=== PATIENT | male | born 1940 | race Caucasian/White ===

== ENCOUNTER 2016-09-19 01:17 | Emergency (ER) | payer OTHER, MEDICARE ==
[2016-09-19 01:28] VITALS: RESP 16
[2016-09-19] MEDS ORDERED: ONDANSETRON 4 MG/2 ML VIAL IVP ONE (01:36)
[2016-09-19] MEDS ORDERED: NS 1,000 ML IV ONE (01:36)
--- NOTE | 2016-09-19 01:43 | EDPHY ---
H & P Stated Complaint: c/o R sided flank pain intermittent since yesterday, tonight pain/n/v Time Seen by Provider: 09/19/16 01:30 HPI/ROS: Chief Complaint: Right flank pain HPI: 75-year-old male with a past medical history of kidney stones been having intermittent right flank pain for the last 2 days. Patient woke this morning with constant pain in his right flank. He did have some nausea and vomited once. It is nonradiating. Denies any fevers or chills. No urinary urgency or frequency. He cannot find a position of comfort. There are no aggravating or alleviating factors. He has been driving cross[place]country and has not been drinking lots of fluid recently. No chest pain or shortness of breath. ROS: 10 point Review of Systems is negative except as noted in the HPI. PMH: Kidney stone, GERD, hyperlipidemia Medications: Protonix and simvastatin Allergies: None Social History: No smoking, occasional alcohol, no recreational drug use Family History: non-contributory Physical Exam: Gen: Awake, Alert, No Distress HEENT: Nose: no rhinorrhea Eyes: PERRLA, EOMI Mouth: Moist mucosa Neck: Supple, no JVD Chest: nontender, lungs clear to auscultation Heart: S1, S2 normal, no murmur Abd: Soft, non-tender, no guarding Back: no CVA tenderness, no midline tenderness Ext: no edema, non-tender Skin: no rash Neuro: CN II-XII intact, Sensation grossly intact, Strength 5/5 in bilateral upper and lower extremities - Medical/Surgical History Hx Asthma: No Hx Chronic Respiratory Disease: No Hx Diabetes: No Hx Cardiac Disease: Yes Hx Renal Disease: No Hx Cirrhosis: No Hx Alcoholism: No Hx HIV/AIDS: No Hx Splenectomy or Spleen Trauma: No Other PMH: kidney stones, gerd, hyperlipidemia, sinus surgery - Social History Smoking Status: Never smoked Constitutional: Initial Vital Signs Temperature (C) 36.8 C 09/19/16 01:21 Heart Rate 76 09/19/16 01:21 Respiratory Rate 16 09/19/16 01:21 Blood Pressure 153/99 H 09/19/16 01:21 O2 Sat (%) 97 09/19/16 01:21 O2 Delivery Mode Room Air Allergies/Adverse Reactions: No Known Allergies Allergy (Unverified 09/19/16 01:25) Home Medications: Medication Instructions Recorded Protonix 09/19/16 SIMVASTATIN 09/19/16 Medical Decision Making - Diagnostics Imaging Results: CT scan of the abdomen pelvis interpreted by Dr. Sagastume. He has bilateral kidney stones but there is no ureteral stones. There is no ureteral dilatation. There is diverticulosis but no evidence of inflammation or infection. The appendix is normal. There is constipation with some fecalization of the terminal ileum but no signs of obstruction. ED Course/Re-evaluation: Urinalysis is negative. Blood work is normal. Patient is improved after Toradol. CT scan is not reveal any intra-abdominal process which is contributing to his pain other than possible some constipation with fecalization of the terminal ileum. Patient's abdomen is soft and benign. He is currently without symptoms. Plan will be for discharge and follow up with primary care physician when he returns home, he will return for worsening. - Data Points Laboratory Results: Laboratory Results 09/19/16 01:35 09/19/16 01:35 09/19/16 09/19/16 09/19/16 01:35 01:35 01:30 WBC 7.35 10^3/uL 10^3/uL (3.80-9.50) RBC 4.84 10^6/uL 10^6/uL (4.40-6.38) Hgb 15.1 g/dL g/dL (13.7-17.5) Hct 43.7 % % (40.0-51.0) MCV 90.3 fL fL (81.5-99.8) MCH 31.2 pg pg (27.9-34.1) MCHC 34.6 g/dL g/dL (32.4-36.7) RDW 11.9 % % (11.5-15.2) Plt Count 185 10^3/uL 10^3/uL (150-400) MPV 10.5 fL fL (8.7-11.7) Neut % (Auto) 48.6 % % (39.3-74.2) Lymph % (Auto) 33.6 % % (15.0-45.0) Dickenson % (Auto) 9.8 % % (4.5-13.0) Eos % (Auto) 6.9 % % (0.6-7.6) Baso % (Auto) 0.8 % % (0.3-1.7) Nucleat RBC Rel Count 0.0 % % (0.0-0.2) Absolute Neuts (auto) 3.57 10^3/uL 10^3/uL (1.70-6.50) Absolute Lymphs (auto) 2.47 10^3/uL 10^3/uL (1.00-3.00) Absolute Monos (auto) 0.72 10^3/uL 10^3/uL (0.30-0.80) Absolute Eos (auto) 0.51 10^3/uL H 10^3/uL (0.03-0.40) Absolute Basos (auto) 0.06 10^3/uL 10^3/uL (0.02-0.10) Absolute Nucleated RBC 0.00 10^3/uL 10^3/uL (0-0.01) Immature Gran % 0.3 % % (0.0-1.1) Immature Gran # 0.02 10^3/uL 10^3/uL (0.00-0.10) Sodium 144 mEq/L mEq/L (134-144) Potassium 3.8 mEq/L mEq/L (3.5-5.2) Chloride 103 mEq/L mEq/L (97-110) Carbon Dioxide 27 mEq/l mEq/l (22-31) Anion Gap 14 mEq/L mEq/L (8-16) BUN 20 mg/dL mg/dL (7-23) Creatinine 1.1 mg/dL mg/dL (0.7-1.3) Estimated GFR > 60 Glucose 138 mg/dL H mg/dL (70-100) Calcium 9.2 mg/dL mg/dL (8.5-10.4) Urine Color YELLOW Urine Appearance CLEAR Urine pH 6.0 (5.0-7.5) Ur Specific P[place] 1.024 (1.002-1.030) Urine Protein NEGATIVE (NEGATIVE) Urine Ketones NEGATIVE (NEGATIVE) Urine Blood NEGATIVE (NEGATIVE) Urine Nitrate NEGATIVE (NEGATIVE) Urine Bilirubin NEGATIVE (NEGATIVE) Urine Urobilinogen NEGATIVE EU EU (0.2-1.0) Ur Leukocyte Esterase NEGATIVE (NEGATIVE) Urine Glucose NEGATIVE (NEGATIVE) Medications Given: Discontinued Medications Sodium Chloride (Ns) 1,000 mls @ 0 mls/hr IV ONCE ONE; Wide Open PRN Reason: Protocol Stop: 09/19/16 01:37 Last Admin: 09/19/16 01:43 Dose: 1,000 mls Ketorolac Tromethamine (Toradol) 15 mg IVP EDNOW ONE Stop: 09/19/16 02:16 Last Admin: 09/19/16 02:21 Dose: 15 mg Ondansetron HCl (Zofran) 4 mg IVP EDNOW ONE Stop: 09/19/16 01:37 Last Admin: 09/19/16 01:44 Dose: 4 mg Departure - Departure Disposition: Home, Routine, Self-Care Clinical Impression: Flank pain, Constipation Condition: Good Instructions: Flank Pain (ED), Constipation (ED) Additional Instructions: You may continue taking ibuprofen alternating with acetaminophen as needed for pain. Follow up with primary care physician when you return home. Make sure to drink plenty of fluids in you may take MiraLax if he continues to have constipation. Return to the emergency depart for increasing pain, fevers, chills, nausea, vomiting, or any other concerns. Referrals: MELVI BIRD [Other] - As per Instructions
[2016-09-19 01:45] LABS: % IMMATURE GRANULYOCYTES 0.3 % (0.0-1.1); ABSOLUTE IMMATURE GRANULOCYTES 0.02 10^3/uL (0.00-0.10); ADD DIFF? NO; ADD MORPH? NO; ADD SCAN? NO; ATYPICAL LYMPHOCYTE FLAG 10 (0-99); FRAGMENT RBC FLAG 0 (0-99); HEMATOCRIT 43.7 % (40.0-51.0); HEMOGLOBIN 15.1 g/dL (13.7-17.5); LEFT SHIFT FLG 0 (0-99); LIPEMIA HEMOLYSIS FLAG 90 (0-99); MEAN CELL HEMOGLOBIN 31.2 pg (27.9-34.1); MEAN CELL HEMOGLOBIN CONCENTR. 34.6 g/dL (32.4-36.7); MEAN CELL VOLUME 90.3 fL (81.5-99.8); MEAN PLATELET VOLUME 10.5 fL (8.7-11.7); PLATELET CLUMPS FLAG 10 (0-99); PLATELET COUNT 185 10^3/uL (150-400); RED BLOOD CELL COUNT 4.84 10^6/uL (4.40-6.38); RED CELL DISTRIBUTION WIDTH 11.9 % (11.5-15.2)
[2016-09-19 02:13] LABS: ANION GAP 14 mEq/L (8-16); CALCIUM 9.2 mg/dL (8.5-10.4); CARBON DIOXIDE 27 mEq/l (22-31); CHLORIDE 103 mEq/L (97-110); CREATININE 1.1 mg/dL (0.7-1.3); GLOMERULAR FILTRATION RATE > 60; GLUCOSE 138 mg/dL (70-100); POTASSIUM 3.8 mEq/L (3.5-5.2); SODIUM 144 mEq/L (134-144)
[2016-09-19] MEDS ORDERED: KETOROLAC 15 MG/1 ML SDV IVP ONE (02:15)
[2016-09-19 02:16] LABS: COLOR YELLOW; LEUKOCYTE ESTERASE,URINE NEGATIVE (NEGATIVE); NITRITE,URINE NEGATIVE (NEGATIVE)
[2016-09-19 03:27] VITALS: BP 130/81; PULSE 82; TEMP 98.4; O2SAT 94
== END 2016-09-19 03:26 | disposition home or self-care (01) ==
DX: K59.00 Constipation, unspecified (principal); E86.9 Volume depletion, unspecified
CPT/HCPCS: 74176; 96374; 96375; 99285; J1885; J2405